=== PATIENT | female | born 1965 | race Caucasian/White ===

== ENCOUNTER 2018-12-31 13:05 | Outpatient (REF) | payer MEDICAID, SELFPAY ==
[2018-12-31 22:06] LABS: ALT 27 U/L (12-78); AST 21 U/L (15-37); Albumin 4.2 g/dL (3.4-5.0); Alkaline Phosphatase 128 U/L (46-116); Anion Gap 7.8 mmol/L (3-11); BUN 15 mg/dL (7-18); Bilirubin, Total 0.3 mg/dL (0.2-1.0); CO2 31.2 mmol/L (21.0-32.0); CREATININE 0.82 mg/dL (0.55-1.02); Calcium 8.8 mg/dL (8.5-10.1); Chloride 102 mmol/L (98-107); Cholesterol 159 mg/dL (50-200); Glucose 128 mg/dL (70-100); HDL Cholesterol 36 mg/dL (40-60); LDL CHOLESTEROL 94 mg/dL (<100); Magnesium 1.8 mg/dL (1.8-2.4); Potassium 4.1 mmol/L (3.5-5.1); Sodium 141 mmol/L (136-145); TSH (W/Ref FT4) 1.53 uIU/mL (0.358-3.74); Triglyceride 206 mg/dL (30-150)
[2018-12-31 23:29] LABS: Hemoglobin A1C 7.1 % (4.5-6.2)
[2018-12-31 23:30] LABS: NT-proBNP 39 pg/mL
== END 2018-12-31 13:25 ==
LOC: NCHCN 13:05
PROVIDERS: Visit Provider Family Medicine
DX: I50.40 Unspecified combined systolic (congestive) and diastolic (congestive) heart failure (principal); R73.09 Other abnormal glucose; E78.00 Pure hypercholesterolemia, unspecified; I25.10 Atherosclerotic heart disease of native coronary artery without angina pectoris; F41.9 Anxiety disorder, unspecified; F32.9 Major depressive disorder, single episode, unspecified
CPT/HCPCS: 80053; 80061; 83721; 83036; 83735; 83880; 84443

== ENCOUNTER 2019-01-22 16:10 | Outpatient (REF) | payer MEDICAID, SELFPAY ==
--- NOTE | 2019-01-22 15:00 | PAPFT_PTH ---
PATIENT: DAREN NOGUEIRA [facility] U[facility][id number] AGE/SX: 53/F ROOM: RE01/22/[address]: Justo Alvarado : 1965 BED: DIS: 01/22/2019 SPEC #: [id number] RECD: 01/23/19 12:35 STATUS: BEL REHira #: [id number] KAREN: 01/22/19 15:[address]: Justo Alvarado DEPT: [facility] Cytology RECD BY: Dee Mcgee ENTERED: 01/23/19 12:36 SP TYPE: PAPFT OTHR DR: Andrew Allen Tissues: 1 - CX/ENDOCX FOR PAP SMEARS Procedures: PAP THIN PREP/[facility] Screening HPV DNA PROBE Comments: [id number]
== END 2019-01-22 16:30 ==
LOC: NCHCN 16:10
PROVIDERS: Visit Provider Family Medicine
DX: Z12.4 Encounter for screening for malignant neoplasm of cervix (principal); Z11.51 Encounter for screening for human papillomavirus (HPV)
CPT/HCPCS: 88142; 87624